=== PATIENT | male | born 1975 | race Caucasian/White ===

== ENCOUNTER 2021-05-11 22:56 | Emergency (ER) | payer OTHER, MEDICARE, MEDICAID, SELFPAY ==
[2021-05-11 22:58] VITALS: BP 138/86; PULSE 89; RESP 18; TEMP 36.5; O2SAT 95; BMI 25.7
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
[2021-05-11 23:40] LABS: Absolute Lymphocyte Count 1.71 X10^3/uL (0.83-4.51); Absolute Neutrophil Count 13.3 X10^3/uL (2.0-7.7); Basophil# 0.05 X10^3/uL; Basophil% 0.3 % (0-1); Eosinophil# 0.08 X10^3/uL; Eosinophils% 0.5 % (0-5); Hematocrit 46.1 % (40-54); Hemoglobin 15.6 g/dL (13.0-16.5); Lymphocyte # 1.71 X10^3/ul (0.83-4.51); Lymphocyte % 10.3 % (19-41); Mean Corp Hgb Conc 33.8 g/dL (32-36); Mean Corpuscular Hgb 30.6 pg (27.0-32.0); Mean Corpuscular Volume 90.6 fL (80-94); Mean Platelet Vol. 9.5 fl (6.2-12.0); Monocyte# 1.46 X10^3/uL; Monocyte% 8.8 % (0-10); NRBC Flagged by Analyzer 0 % (0-5); Neutrophil % 79.6 % (47-70); Platelet Count 292 K/mm3 (150-450); RBC Distribution Width CV 12.8 % (11.6-14.6); RBC Distribution Width SD 42.1 fl (35.1-43.9); Red Blood Count 5.09 M/mm3 (4.6-6.2); White Blood Count 16.7 K/mm3 (4.4-11.0)
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
[2021-05-12 00:05] LABS: Anion Gap 10 (5-15); BUN 20 mg/dL (7-18); BUN/Creat Ratio 22.2 RATIO (10-20); Calcium,Total 9.4 mg/dL (8.5-10.1); Chloride 105 mmol/L (98-107); EST Glomerular Filtration Rate 97 mL/min (>60); Est Glom Filt Rate - Afr Amer 117 mL/min (>60); Estimated Creatinine Clearance 104.74 ml/min; Glucose 123 mg/dL (74-106); Potassium 3.9 mmol/L (3.5-5.1); Sodium Level 137 mmol/L (136-145)
[2021-05-12] MEDS: 0.9% Normal Saline 1,000 ML 999 ML IV (00:17)
[2021-05-12 00:52] LABS: Alcohol, Blood (Medical)-Serum < 3.0 mg/dL
[2021-05-12 02:23] LABS: Amphetamine Urine VISTA POSITIVE (<1000 ng/mL); Barbiturate Urine VISTA NEGATIVE (< 200 ng/mL); Benzodiazepine Urine VISTA NEGATIVE (< 200 ng/mL); Cocaine Urine VISTA NEGATIVE (< 300 ng/mL); Ecstacy Urine VISTA NEGATIVE (< 500 ng/mL); Methadone Urine VISTA NEGATIVE (< 300 ng/mL); PCP Urine VISTA NEGATIVE (< 25 ng/mL); THC Urine VISTA POSITIVE (< 50 ng/mL); Vista UDS pH Range 5
[2021-05-12 02:41] VITALS: BP 153/79; PULSE 82; RESP 18; O2SAT 97
[2021-05-12] MEDS: Dicyclomine 20 MG/2 ML Vial IM (03:32)
== END 2021-05-12 03:49 | disposition other institution (70) ==
PROVIDERS: Emergency Provider Emergency Medicine
DX: S22.20XA Unspecified fracture of sternum, initial encounter for closed fracture (principal); Z79.899 Other long term (current) drug therapy; V43.52XA Car driver injured in collision with other type car in traffic accident, initial encounter; Y92.410 Unspecified street and highway as the place of occurrence of the external cause
CPT/HCPCS: 70450; 71260; 72125; 74177; 80048; 80307; 82077; 85025; 96360; 96361; 96372; 99284; J7030; Q9967; A4216